=== PATIENT | female | born 1995 | race Caucasian/White ===

== ENCOUNTER 2022-09-15 18:35 | Emergency (ER) | payer BC, OTHER ==
[2022-09-15] MEDS ORDERED: Sodium Chloride 0.9% 1,000 ML IV ONE (19:17)
[2022-09-15] MEDS ORDERED: Sodium Chloride 0.9% 10 ML Syringe FLUSH PRN (19:17)
[2022-09-15] MEDS ORDERED: Methylergonovine 0.2 MG/1 ML Amp IM ONE (19:22)
[2022-09-15] MEDS ORDERED: Ondansetron 4 MG/2 ML SDV IVPUSH ONE (19:22)
[2022-09-15 19:26] LABS: BASOPHILS PERCENT AUTO 0.4 % (0.0-1.0); EOSINOPHILS PERCENT AUTO 4.2 % (1.0-3.0); HEMATOCRIT 39.7 % (37.0-47.0); HEMOGLOBIN 13.5 g/dL (12.0-16.0); LYMPHOCYTES PERCENT AUTO 16.5 % (20.5-50.1); MEAN CORPUSCULAR VOLUME 85.2 fL (80-100); MONOCYTES PERCENT AUTO 9.9 % (2-8); PLATELET COUNT,PLT 242 10^3/uL (150-450); RED BLOOD CELL COUNT 4.66 10^6/uL (4.2-5.4); WHITE BLOOD CELL COUNT,WBC 5.5 10^3/uL (5.0-10.0)
[2022-09-15] MEDS ORDERED: Ketorolac 30 MG/ML SDV IVPUSH ONE (19:27)
[2022-09-15 19:30] LABS: ANION GAP 14.4 mEq/L (7-13); CREATININE 0.96 mg/dL (0.55-1.02); EST CRCL DRUG DOSING (CG) 64.91 mL/min; POTASSIUM,K 3.4 mmol/L (3.5-5.1)
== END 2022-09-15 21:05 | disposition home or self-care (01) ==
LOC: DL.ED 18:35
DX: N93.9 Abnormal uterine and vaginal bleeding, unspecified (principal); R10.2 Pelvic and perineal pain; E10.9 Type 1 diabetes mellitus without complications; Z86.16 Personal history of COVID-19
CPT/HCPCS: 36415; 80048; 85025; 86850; 86900; 86901; 96361; 96372; 96374; 99284-25; J2210; J2405; J7030

== ENCOUNTER 2024-08-05 23:12 | Inpatient (IN) | payer BC, OTHER ==
[2024-08-06] MEDS: Ondansetron 4 MG/2 ML SDV IVPUSH ONE (00:15)
[2024-08-06 00:27] LABS: BASOPHILS PERCENT AUTO 0.1 % (0.0-1.0); EOSINOPHILS PERCENT AUTO 3.2 % (1.0-3.0); HEMATOCRIT 31.2 % (37.0-47.0); HEMOGLOBIN 10.2 g/dL (12.0-16.0); LYMPHOCYTES PERCENT AUTO 15.3 % (20.5-50.1); MEAN CORPUSCULAR HEMOGLOBIN 27.3 pg (27.0-34.0); MEAN CORPUSCULAR HGB CONC 32.7 g/dL (33.0-35.0); MEAN CORPUSCULAR VOLUME 83.4 fL (80-100); MONOCYTES PERCENT AUTO 5.8 % (2-8); NEUTROPHILS PERCENT AUTO 75.6 % (42.2-75.2); PLATELET COUNT,PLT 280 10^3/uL (150-450); RED BLOOD CELL COUNT 3.74 10^6/uL (4.2-5.4); WHITE BLOOD CELL COUNT,WBC 9.7 10^3/uL (5.0-10.0)
[2024-08-06] MEDS ORDERED: Naloxone 2 MG/2 ML Syringe IVPUSH PRN (00:53)
[2024-08-06 00:54] LABS: A/G RATIO 0.78; ALBUMIN 2.8 g/dL (3.4-5.0); ANION GAP 11.3 mEq/L (7-13); BILIRUBIN TOTAL 0.2 mg/dL (0.2-1.0); BUN/CREATININE RATIO 6.9 (No establ ref range); CALCIUM 8.5 mg/dL (8.5-10.1); CREATININE 0.72 mg/dL (0.55-1.02); EST CRCL DRUG DOSING (CG) 85.05 mL/min; MAGNESIUM 1.8 mg/dL (1.8-2.4); POTASSIUM,K 3.3 mmol/L (3.5-5.1); PROTEIN TOTAL,TP 6.4 g/dL (6.4-8.2)
[2024-08-06 01:05] LABS: LACTIC ACID 1.1 mmol/L (0.4-2.0)
[2024-08-06] MEDS: HYDROmorphone 1 MG/ML Syringe IVPUSH ONE (01:19)
[2024-08-06] MEDS: Metoclopramide 10 MG/2 ML SDV IVPUSH ONE (01:20)
[2024-08-06 02:57] LABS: APPEARANCE,URINE CLEAR (CLEAR); BILIRUBIN,URINE NEGATIVE (NEGATIVE); COLOR,URINE YELLOW (YELLOW); GLUCOSE,URINE NEGATIVE (NEGATIVE); KETONES,URINE 80 (NEGATIVE); LEUKOCYTE ESTERASE,URINE NEGATIVE (NEGATIVE); NITRITE,URINE NEGATIVE (NEGATIVE); OCCULT BLOOD,URINE TRACE-INTACT (NEGATIVE); PROTEIN,URINE NEGATIVE (NEGATIVE); UROBILINOGEN,URINE 0.2 mg/dL (0.2-1.0)
[2024-08-06] MEDS: Lactated Ringers 1,000 ML IV ONE (02:57)
[2024-08-06] MEDS: Prochlorperazine 25 MG Supp RECTAL ONE (03:43)
[2024-08-06 04:08] LABS: BACTERIA,URINE RARE /HPF (0-FEW/HPF); EPITHELIAL CELLS,URINE FEW /HPF (NOT SEEN); MUCUS,URINE FEW /LPF (NOT SEEN); RBC,URINE 0-5 /HPF (0-5); WBC,URINE 0-5 /HPF (0-5/HPF)
[2024-08-06] MEDS: fentaNYL 100 MCG/2 ML SDV IVPUSH ONE (07:01)
[2024-08-06] MEDS: Prochlorperazine 5 MG Tab PO ONE (07:01)
[2024-08-06] MEDS: diphenhydrAMINE 50 MG/ML SDV IVPUSH ONE (07:02)
[2024-08-06] MEDS ORDERED: Glucagon,Human Recombinant 1 MG Vial IM PRN (07:28)
[2024-08-06] MEDS ORDERED: 50% Dextrose in Water 50 ML Syringe IVPUSH PRN (07:28)
[2024-08-06] MEDS ORDERED: NOVOLOG 100 UNIT/ML SQ SCH (08:00)
[2024-08-06] MEDS: Iopamidol 755 Mg/ML 100 ML Bottle IVPUSH ONE (08:23)
[2024-08-06] MEDS: Cefepime 1 GM Vial IVPUSH SCH (08:37)
[2024-08-06] MEDS: Potassium Chloride 20 MEQ in Premix Bag 1 BAG IV ONE (08:37)
[2024-08-06] MEDS: Docusate Sodium 100 MG Cap PO SCH (08:38)
[2024-08-06 09:03] LABS: O2 DELIVERY DEVICE ROOM AIR; PCO2 ARTERIAL 33 mmHg (35-45); PH,ARTERIAL 7.44 (7.35-7.45); PO2 ARTERIAL 61 mmHg (70-100)
[2024-08-06 09:04] LABS: ALLEN TEST POSITIVE; BASE EXCESS ARTERIAL -1 mmol/L ((-2)-(+3)); BICARBONATE,ARTERIAL 22.5 mmol/L (22-26); O2 SATURATION ARTERIAL 90 % (95-100)
[2024-08-06 09:25] LABS: C-REACTIVE PROTEIN 7.72 ng/dL (<=0.50); MAGNESIUM 1.7 mg/dL (1.8-2.4)
[2024-08-06] MEDS: Nitroglycerin/D5W 25 MG/250 ML BOTTLE IV SCH (10:33)
[2024-08-06] MEDS: Pantoprazole 40 MG Vial IVPUSH ONE (10:35)
[2024-08-06] MEDS: fentaNYL 100 MCG/2 ML SDV IVPUSH PRN (10:35)
[2024-08-06] MEDS: Ibuprofen 400 MG Tab PO SCH (10:35)
[2024-08-06] MEDS: atorvaSTATin 20 MG Tab PO ONE (10:35)
[2024-08-06] MEDS: Aspirin 81 MG Tab.Chew PO ONE (10:36)
[2024-08-06 10:43] LABS: AMPHETAMINES,URINE NEGATIVE (NEGATIVE); BARBITURATES,URINE NEGATIVE (NEGATIVE); BENZODIAZEPINE,URINE NEGATIVE (NEGATIVE); MDMA (ECSTASY), URINE NEGATIVE (NEGATIVE); METHADONE,URINE NEGATIVE (NEGATIVE); METHAMPHETAMINES,URINE NEGATIVE (NEGATIVE); OPIATES,URINE NEGATIVE (NEGATIVE); OXYCODONE,URINE NEGATIVE (NEGATIVE); PHENCYCLIDINE,URINE NEGATIVE (NEGATIVE); TCA,URINE NEGATIVE (NEGATIVE)
[2024-08-06] MEDS ORDERED: Prochlorperazine 5 MG Tab PO PRN (11:00)
[2024-08-06] MEDS ORDERED: diphenhydrAMINE 50 MG/ML SDV IVPUSH PRN (11:00)
[2024-08-06] MEDS: INSULIN GLARG HUMAN REC ANALOG 100 UNIT/ML SUBCUT SCH (11:08)
[2024-08-06] MEDS: Heparin Sodium/0.45% NaCl 25,000 UNITS/500 ML BAG IV SCH (11:59)
[2024-08-06] MEDS ORDERED: Heparin Sodium 5,000 Units/ML Vial SUBCUT SCH (14:00)
[2024-08-06] MEDS: metroNIDAZOLE/Normal Saline 500 MG in Premix Bag 1 BAG IV ONE (15:43)
[2024-08-06] MEDS: Acetaminophen 325 MG Tab PO SCH (15:43)
== END 2024-08-06 14:00 | DRG 190 ==
LOC: DL.ED 23:12 → DL.MS 08-06 06:23
PROVIDERS: ADMIT Internal Medicine; ATTEND Internal Medicine
PROC: 4A033R1 Measurement of Arterial Saturation, Peripheral, Percutaneous Approach (ICD-10-PCS; principal; 2024-08-06)
DX: I21.4 Non-ST elevation (NSTEMI) myocardial infarction (principal); J96.01 Acute respiratory failure with hypoxia; E10.9 Type 1 diabetes mellitus without complications; Z68.41 Body mass index [BMI] 40.0-44.9, adult; H54.7 Unspecified visual loss; E66.9 Obesity, unspecified; E28.2 Polycystic ovarian syndrome; D64.9 Anemia, unspecified; E87.6 Hypokalemia; Z98.890 Other specified postprocedural states; Z88.8 Allergy status to other drugs, medicaments and biological substances; Z91.040 Latex allergy status; Z79.899 Other long term (current) drug therapy; Z86.16 Personal history of COVID-19
CPT/HCPCS: 36415; 36600; 71275; 80053; 80305-QW; 81001; 82803; 82947; 83605; 83735; 83880; 84484; 84702; 85025; 85651; 85730; 86140; 87040; 93005; 96361; 96374; 96375; 99284-25; 99285; 99291; A9270-GY; J0692; J1171; J1200; J1644; J2305; J2405; J2470; J2765; J3010; J3480; J7120; Q0164; Q9967; U0002